=== PATIENT | female | born 1995 | race Caucasian/White ===

== ENCOUNTER 2018-10-19 11:49 | Day surgery (SDC) | payer BC, OTHER ==
[~2018-10-19] VITALS: Ht 154.9 cm; Wt 81.6 kg
--- NOTE | ~2018-10-19 | O ---
[address] [address] OPERATIVE REPORT Name: JULY COELHO Room #: 150-2 [facility]#: [id number] Admission: 10/19/18 Attend Phys: Jb Henderson MD Discharge: Date of : 89 Report #: [id number] THIS REPORT FOR: //name// CC: FAM unknown Jb Henderson Physician staff DATE OF SERVICE: 10/19/2018 SERVICE: Orthopedics. FACILITY: [facility]. SURGEON: Jb Henderson MD MANAGER DEVELOPMENT: Caterina Noyola NP. INDICATION FOR MANAGER DEVELOPMENT: Extremity positioning, suture and arthroscope management and assistance with repair. PREOPERATIVE DIAGNOSES: 1. Right hip pain. 2. Right hip labral tear. 3. Right hip femoroacetabular impingement. POSTOPERATIVE DIAGNOSES: 1. Right hip pain. 2. Right hip labral tear. 3. Right hip femoroacetabular impingement. PROCEDURES: 1. Right hip arthroscopic labral repair. 2. Right hip arthroscopic Cam osteochondroplasty. 3. Right hip arthroscopic extraarticular subspine acetabuloplasty. COMPLICATIONS: None. DRAINS: None. SPECIMENS: None. ANESTHESIA: General with regional. FINDINGS: 1. Labral tears repaired with Roseanne CinchLock suture anchor x 2. 2. Prominent anterior inferior iliac spine, treated with an extraarticular [address] [address] OPERATIVE REPORT Name: JULY COELHO Room #: 150-2 [facility]#: [id number] Admission: 10/19/18 Attend Phys: Jb Henderson MD Discharge: Date of : 89 Report #: [id number] acetabuloplasty (subspine recession). 3. Small Cam osteoplasty with maximum alpha angle approximately 59 degrees, treated with Cam resection. HISTORY: The patient is a 23-year-old young lady who is attending nursing school who has a history of persistent progressive right hip pain that had failed all conservative measures including rest, activity modifications, physical therapy, oral medicines and modalities. 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 She had a Tonnis grade of 0. Ultimately, she elected to undergo definitive surgical treatment after risks, benefits, alternatives and indication of surgery discussed with her in detail. Risks including but not limited to pain, bleeding, infection, injury to nerves or blood vessels, persistent pain despite surgical intervention, failure of any repairs, progression of any preexisting chondral injury, stiffness, need for further surgery as well as complications related to anesthesia. Despite these risks, she wished to proceed. PROCEDURE IN DETAIL: After right lower extremity was correctly identified in preoperative holding area as the operative extremity, the patient underwent placement of a single shot regional nerve block. She was then taken to the operating room where general anesthesia was induced without complication. She was padded appropriately. Prophylactic antibiotics were administered at appropriate time. Right hip femoral head and neck junction was mapped out under fluoroscopy to assess the extent of the Cam deformity. Right hip was then prepped and draped in standard sterile fashion. Time-out procedure was performed. Traction was applied to right lower extremity. Total traction time was approximately 50 minutes. Standard anterolateral viewing portal was established followed by anterior medial working portal. There was noted to be capsular erythema, which will be the indication for CPM usage postoperatively in order to prevent adhesions, which are a known cause of persistent pain postoperatively and reason for reoperation, which we tried to minimize. Transverse capsulotomy was performed. Probing of the labrum demonstrated a chondral wave sign anteriorly as well as a full thickness labral tear at focal position anteriorly with some granulation tissue. This was adjacent to the subspine impingement lesion. The capsule was reflected off the dorsal side of the labrum. The capsule was very hypervascular in this location and the subspine region was exposed. The bur was used to perform a subspine recession and then the bur was used to gently abrade the acetabular rim to generate a fresh bleeding surface for labral refixation. After this was completed, the labrum was then repaired with Leonard [address] [address] OPERATIVE REPORT Name: JULY COELHO Room #: 150-2 [facility] M.R.#: [id number] Admission: 10/19/18 Attend Phys: Jb Henderson MD Discharge: Date of : 89 Report #: [id number] suture anchor x 2 utilizing a cerclage suture and then the first capsular closure stitch was placed anteriorly. Traction was let down and the hip was flexed up. Attention was turned towards the peripheral compartment. The Cam deformity was visualized and then it was resected with the bur. I removed the instruments, brought C-arm in, assessed the Cam deformity, identified some additional bone over the distal lateral corner, placed the instruments back into the hip, completed the Cam osteoplasty, lavaged the bony debris out of the hip and then removed the instruments once more, checked C-arm x-rays to confirm that complete resection being completed. At this point, the instruments were placed back into the hip and T-shaped capsulotomy was closed with a total of four #2 Vicryl sutures, tying the anterior suture last which provided good watertight closure. Instruments were removed. Portal sites were closed. Sterile dressing was applied. The patient was awakened from anesthesia and taken to recovery room. There were no complications. All counts were recorded as correct. By: [id number] Jb Henderson MD /laureano
[~2018-10-19 11:49] MED LIST: NAPROXEN SODIU550 MG PO; SPRINTEC1 EACH PO
[2018-10-19 14:23] VITALS: BP 110/82
[2018-10-19 15:32] VITALS: BP 110/82
== END 2018-10-19 15:33 | disposition home or self-care (01) ==
LOC: OR 11:49 → TBA 11:50 → OR 14:09
DX: S73.101A Unspecified sprain of right hip, initial encounter (principal); M25.851 Other specified joint disorders, right hip; Z98.890 Other specified postprocedural states; X58.XXXA Exposure to other specified factors, initial encounter; Y93.89 Activity, other specified; Y92.89 Other specified places as the place of occurrence of the external cause; Y99.8 Other external cause status
CPT/HCPCS: 50010; 50101; 50386; 51038; 51320; 51538; 52001; 52282; 52304; 52313; 55430; 56524; 56527; 57092; 57103; 62110; 62900; 64039; 70005